=== PATIENT | male | born 1965 | race Caucasian/White ===

== ENCOUNTER 2019-09-08 15:05 | Emergency (ER) | payer OTHER ==
[2019-09-08 15:32] VITALS: BP 147/87; PULSE 59
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
--- NOTE | 2019-09-10 09:35 | CR ---
Ankle Min 3V Lt CLINICAL HISTORY: Pain and swelling FINDINGS: The soft tissues are swollen over the lateral malleolus. There is an oblique fracture of the distal fibula. There is some mild widening of the medial ankle mortise joint space. Impression: Fracture distal fibula. Mild widening of the medial ankle mortise. This may represent ligamentous injury FOOT RIGHT 3 views FINDINGS:No fracture or dislocation is identified in the foot. Impression: No fracture
--- NOTE | 2019-09-10 12:15 | CR ---
See ankle report
== END 2019-09-08 17:16 | disposition home or self-care (01) ==
LOC: JP.ED 15:05
DX: S82.832A Other fracture of upper and lower end of left fibula, initial encounter for closed fracture (principal); Z88.0 Allergy status to penicillin; Z87.891 Personal history of nicotine dependence; V86.52XA Driver of snowmobile injured in nontraffic accident, initial encounter
CPT/HCPCS: 29515; 73610-26-LT; 73610-LT; 73620-26-LT; 73620-LT; 99283-25

== ENCOUNTER 2025-03-26 20:06 | Emergency (ER) | payer BC, OTHER ==
[2025-03-26] MEDS: Ketorolac 30 MG/ML SDV IVPUSH ONE (21:04)
[2025-03-26 21:08] VITALS: BP 147/85; PULSE 49
== END 2025-03-26 23:45 | disposition home or self-care (01) ==
LOC: JP.ED 20:06
DX: M54.50 Low back pain, unspecified (principal); Z88.0 Allergy status to penicillin; Z79.899 Other long term (current) drug therapy
CPT/HCPCS: 96374; 99283; A9270; J1885